=== PATIENT | female | born 1935 | race African-American/Black ===

== ENCOUNTER 2017-01-05 10:47 | Day surgery (SDC) | payer OTHER ==
[2017-01-02 11:50] LABS: HEMATOCRIT 35.5 % (36.0-48.0); HEMOGLOBIN 11.4 g/dL (12.0-16.0)
[2017-01-02 12:05] LABS: BUN (BLOOD UREA NITROGEN) 22 MG/DL (6-23); CALCIUM, SERUM 9.1 MG/DL (8.5-10.4); CHLORIDE, SERUM 108 MMOL/L (96-112); CO2 (CARBON DIOXIDE) 29 MMOL/L (24-34); CREATININE 0.95 MG/DL (0.55-1.02); GFR AFRICAN AMERICAN 65 ML/MIN (>=60); GFR NON AFRICAN AMERICAN 56 ML/MIN (>=60); GLUCOSE, SERUM 89 MG/DL (60-99); POTASSIUM, SERUM 3.3 MMOL/L (3.5-5.3); SODIUM, SERUM 144 MMOL/L (135-148)
--- NOTE | ~2017-01-05 | OP ---
Record Of Operation [facility] [address] [place]. [address] NAME: TIERNEY STEWART : 33 STATUS : [place] [facility] [place]#: [id number] AGE: 81 ADM/REG DATE : 01/05/17 MR#: [id number] REPORT SERV DATE: 01/05/17 DICTATED BY: KENYON WELSH DATE: 01/05/17 REPORT STATUS : Draft TRANSCRIBED BY: MODRoslyn DATE: 01/05/17 DATE OF PROCEDURE: 01/05/2017 PREOPERATIVE DIAGNOSIS: L3 acute compression fracture. POSTOPERATIVE DIAGNOSIS: L3 acute compression fracture. PROCEDURE: L3 vertebral body biopsy and L3 kyphoplasty. SURGEON: Kenyon Welsh DO. ANESTHESIA: General. ESTIMATED BLOOD LOSS: 5 mL. COMPLICATIONS: None. INDICATIONS: The patient is an 81-year-old with intractable back pain after a fall. MRI confirmed an acute L3 compression fracture. After failing conservative treatment and having difficulty with ambulating and unable to participate in any further conservative measures, she elected to proceed with surgery. DESCRIPTION OF PROCEDURE: Identified the patient in the holding area. Consent was obtained. Went to the operating room. Underwent general anesthesia with endotracheal intubation. Turned to prone position. Prepped and draped in usual sterile fashion. Operative safety pause was performed, and then we proceeded. AP and lateral fluoroscopic images were used to identify the bilateral pedicles at L3. Small stab incision was made over the pedicles. Kyphon Jamshidi needles were passed through the pedicles into the L3 vertebral body bilaterally. A core biopsy was taken and sent for pathologic analysis. Kyphon balloons were inserted and gently inflated under fluoroscopic guidance, they were deflated. Kyphon cement was mixed and gently inserted into the L3 pedicles bilaterally under fluoroscopic guidance. Jamshidi needles were removed. Final AP and lateral images were obtained. Irrigation was performed. Hemostasis was achieved. Sterile dressings were applied. The patient was awoken, extubated, and taken to recovery room in stable condition. OPERATIVE FINDINGS: L3 acute compression fracture. ANDRES/DEMETRIUS Kenyon Welsh DO / [id number] Record Of Operation [facility] [address] [facility] [place] [address] NAME: TIERNEY STEWART : 33 STATUS : REG [facility]#: [id number] AGE: 81 ADM/REG DATE : 01/05/17 MR#: [id number] REPORT SERV DATE: 01/05/17 DICTATED BY: KENYON WELSH DATE: 01/05/17 REPORT STATUS : Draft TRANSCRIBED BY: MODL DATE: 01/05/17 CC: DO Kimi Roman MD
[~2017-01-05 10:47] MED LIST: ENDOCET1 TAB PO; HYZAAR1 TAB PO; METOPROLOL/HCTZ PO; NORV5 PO; PLAVIX PO
== END 2017-01-05 18:20 | disposition home or self-care (01) ==
LOC: SDC 10:47
PROVIDERS: Orthopaedic Surgery
PROC: 0QU03JZ Supplement Lumbar Vertebra with Synthetic Substitute, Percutaneous Approach (ICD-10-PCS; 2017-01-05)
PROC: 0QS03ZZ Reposition Lumbar Vertebra, Percutaneous Approach (ICD-10-PCS; principal; 2017-01-05 09:45)
DX: S32.039A Unspecified fracture of third lumbar vertebra, initial encounter for closed fracture (principal); E78.00 Pure hypercholesterolemia, unspecified; I10 Essential (primary) hypertension; I25.10 Atherosclerotic heart disease of native coronary artery without angina pectoris; G47.33 Obstructive sleep apnea (adult) (pediatric); Z99.81 Dependence on supplemental oxygen; Z86.73 Personal history of transient ischemic attack (TIA), and cerebral infarction without residual deficits; Z95.5 Presence of coronary angioplasty implant and graft; W19.XXXA Unspecified fall, initial encounter
CPT/HCPCS: 80048; 85014; 85018; 88307; 88311; 93005; C1726; J0690; J2405; J2710; J3010; Q9967